=== PATIENT | female | born 1990 | race Caucasian/White ===

== ENCOUNTER 2018-04-28 01:47 | Emergency (ER) | payer MEDICAID ==
[~2018-04-28] VITALS: Ht 154.9 cm; Wt 51.0 kg
[2018-04-28 02:01] VITALS: Ht 154.9 cm; Wt 51.0 kg
[2018-04-28 03:31] VITALS: BP 132/69
== END 2018-04-28 03:31 | disposition home or self-care (01) ==
LOC: ED 01:47
DX: S51.812A Laceration without foreign body of left forearm, initial encounter (principal); W26.8XXA Contact with other sharp object(s), not elsewhere classified, initial encounter; Y93.89 Activity, other specified; Y92.89 Other specified places as the place of occurrence of the external cause; Y99.8 Other external cause status
CPT/HCPCS: J2001

== ENCOUNTER 2018-05-07 02:10 | Emergency (ER) | payer MEDICAID ==
[~2018-05-07] VITALS: Ht 154.9 cm; Wt 51.3 kg
[2018-05-07 02:27] VITALS: Ht 154.9 cm; Wt 51.3 kg
[2018-05-07 03:18] VITALS: BP 125/79
== END 2018-05-07 03:18 | disposition home or self-care (01) ==
LOC: ED 02:10
DX: S51.812D Laceration without foreign body of left forearm, subsequent encounter (principal); X58.XXXD Exposure to other specified factors, subsequent encounter